=== PATIENT | male | born 1935 | race Caucasian/White ===

== ENCOUNTER 2016-06-23 08:31 | Inpatient (IN) | payer MEDICARE ==
[~2016-06-23] VITALS: Ht 180.3 cm; Wt 91.6 kg
[~2016-06-23 08:31] MED LIST: ARICEPT10 MG PO; ASPIR-LOW81 MG PO; BACTRIM DS 8001 TAB PO; BUPROPION SR150 MG PO; CEFTIN 250250 MG/TAB PO; FLOMAX; KLOR-CON 1010 MEQ PO; LASIX 40MG TABL40 MG PO; LISINOPRIL/HCTZ1 TAB PO; LOPRESSOR 225 MG/TAB PO; NAMENDA XR 7 PO; NORCO 325 MG-51 TAB PO; TOPROL XL50 MG PO; WELLBUTRIN SR150 M1 PO; ZOCOR 80MG80 MG PO; ZOCOR80 MG PO; ZYLOPRIM 100MG100 MG PO
[2016-06-23 09:01] LABS: BASO % 0.4 % (0.0-2.0); EOS % 0.4 % (0-4.0); GRAN % 75.8 % (42.2-75.2); HEMOGLOBIN 13.9 g/dl (13.5-18.0); LYMPH # 1.3 (1.2-3.4); LYMPH % 13.5 % (20.0-51.0); MEAN CELL VOLUME 88 fl (80.0-100.0); MEAN CORPUSCULAR HEMOGLOBIN 29 pg (27.0-31.0); MEAN CORPUSCULAR HGB CONC 33 g/dl (33.0-37.0); MONO # 0.9 (0.1-0.6); MONO % 9.4 % (1.7-9.3); PLATELET COUNT 150 K/mm3 (130-400); RED BLOOD COUNT 4.79 M/mm3 (4.20-5.60); REDCELL DISTRIBUTION WIDTH-CV 14.2 % (11.5-14.5); WHITE BLOOD COUNT 9.2 K/mm3 (4.8-10.8)
[2016-06-23 09:05] LABS: INR 1.1 (0.8-3.0); PROTHROMBIN TIME 12.4 SECONDS (9.7-12.8)
[2016-06-23 09:07] LABS: PARTIAL THROMBOPLASTIN TIME 38.1 SECONDS (26.0-37.0)
[2016-06-23 09:15] LABS: ADJUSTED CALCIUM 8.7 mg/dL (8.4-10.2); BILIRUBIN,TOTAL 1.8 mg/dL (0.0-1.0); CALCIUM 8.7 mg/dL (8.4-10.2); CREATININE, serum 1.95 mg/dL (0.66-1.25); POTASSIUM 3.6 mmol/L (3.4-5.0)
[2016-06-23 09:27] LABS: TROPONIN-I 0.013 ng/mL (0.000-0.034)
[2016-06-23] MEDS ORDERED: ASPIRIN 81M81 MG/TA2 PO (09:57)
[2016-06-23] MEDS ORDERED: PRINZIDE 12.5 M1 TAB PO (09:58)
[2016-06-23] MEDS ORDERED: NAMENDA 10MG TA10 MG PO (09:59)
[2016-06-23] MEDS ORDERED: PLAVIX 75MG TAB75 MG PO (10:48)
[2016-06-23 11:22] LABS: PH 6 (5-8); SQUAMOUS EPITHELIAL 0-2 /hpf; URINE APPEARANCE Clear; URINE BACTERIA None Seen /hpf; URINE BILIRUBIN Negative (NEGATIVE); URINE BLOOD Negative (NEGATIVE); URINE COLOR Yellow; URINE GLUCOSE Negative (NEGATIVE); URINE KETONE Negative (NEGATIVE); URINE RBC 0-2 /hpf; URINE UROBILINOGEN Negative (NEGATIVE); URINE WBC 0-2 /hpf
[2016-06-23 12:48] VITALS: BP 134/62; PULSE 55; TEMP 98
[2016-06-23 12:51] VITALS: BP 134/62; PULSE 55; TEMP 98
[2016-06-23 16:51] VITALS: BP 151/55; PULSE 68; TEMP 98.6
[2016-06-23 19:50] VITALS: BP 134/78; PULSE 69; TEMP 98.5
[2016-06-23 23:46] VITALS: BP 117/59; PULSE 59; TEMP 98.3
[2016-06-24 03:35] VITALS: BP 128/65; PULSE 67; TEMP 98.2
[2016-06-24 07:30] LABS: HEMATOCRIT 37.9 % (42.0-52.0); HEMOGLOBIN 12.6 g/dl (13.5-18.0); MEAN CELL VOLUME 88 fl (80.0-100.0); MEAN CORPUSCULAR HEMOGLOBIN 29 pg (27.0-31.0); MEAN CORPUSCULAR HGB CONC 33 g/dl (33.0-37.0); MEAN PLATELET VOLUME 10.4 fl (7.4-10.4); PLATELET COUNT 120 K/mm3 (130-400); RED BLOOD COUNT 4.32 M/mm3 (4.20-5.60); REDCELL DISTRIBUTION WIDTH-CV 14.3 % (11.5-14.5)
[2016-06-24 07:40] LABS: CALCIUM 8.3 mg/dL (8.4-10.2); CREATININE, serum 1.72 mg/dL (0.66-1.25); POTASSIUM 3.2 mmol/L (3.4-5.0)
[2016-06-24 07:53] VITALS: BP 138/63; PULSE 62; TEMP 97.4
[2016-06-24 07:58] LABS: THYROXINE (T4)-TOTAL 4.4 ug/dL (5.5-11.0)
[2016-06-24 08:21] LABS: ERYTHROCYTE SEDIMENTATION RATE 14 mm/hr (0-30)
[2016-06-24 11:50] VITALS: BP 155/74; PULSE 68; TEMP 98.5
[2016-06-24 16:47] VITALS: BP 141/67; PULSE 74; TEMP 98.5
[2016-06-24 20:29] VITALS: BP 142/65; PULSE 73; TEMP 97.8
[2016-06-24 23:52] VITALS: BP 147/62; PULSE 61; TEMP 97.8
[2016-06-25 02:52] VITALS: BP 171/68; PULSE 60; TEMP 97.3
[2016-06-25 08:12] LABS: BASO % 0.9 % (0.0-2.0); EOS # 0.2 (0.0-0.7); EOS % 4.5 % (0-4.0); GRAN # 2.1 (1.4-6.5); GRAN % 50.5 % (42.2-75.2); HEMATOCRIT 38.2 % (42.0-52.0); HEMOGLOBIN 12.6 g/dl (13.5-18.0); LYMPH # 1.3 (1.2-3.4); MEAN CELL VOLUME 88 fl (80.0-100.0); MEAN CORPUSCULAR HEMOGLOBIN 29 pg (27.0-31.0); MEAN CORPUSCULAR HGB CONC 33 g/dl (33.0-37.0); MEAN PLATELET VOLUME 10.7 fl (7.4-10.4); MONO # 0.6 (0.1-0.6); MONO % 13.9 % (1.7-9.3); PLATELET COUNT 127 K/mm3 (130-400); RED BLOOD COUNT 4.32 M/mm3 (4.20-5.60); REDCELL DISTRIBUTION WIDTH-CV 14.1 % (11.5-14.5); WHITE BLOOD COUNT 4.2 K/mm3 (4.8-10.8)
[2016-06-25 08:17] LABS: C-REACTIVE PROTEIN 1.4 mg/dL (0.0-0.9); CALCIUM 8.3 mg/dL (8.4-10.2); CREATININE, serum 1.56 mg/dL (0.66-1.25); POTASSIUM 3.3 mmol/L (3.4-5.0)
[2016-06-25 09:09] VITALS: BP 122/59; PULSE 71; TEMP 98.1
[2016-06-25] MEDS ORDERED: CLEOCIN HCL300 MG PO (11:28)
[2016-06-25] MEDS ORDERED: SYNTHROID 0.0.025 MG PO (11:28)
[2016-06-25] MEDS ORDERED: ASPIRIN 32325 MG/TAB PO (11:29)
[2016-06-25 12:13] VITALS: BP 153/77; PULSE 60; TEMP 98.1
== END 2016-06-25 14:34 | disposition home or self-care (01) | DRG 603 ==
LOC: COL.ER 08:31 → MEDICAL 11:15
PROVIDERS: Family Medicine; Nurse Practitioner; Psychiatry & Neurology Neurology
DX: L03.211 Cellulitis of face (principal); N17.9 Acute kidney failure, unspecified; R29.810 Facial weakness; I25.10 Atherosclerotic heart disease of native coronary artery without angina pectoris; G30.9 Alzheimer's disease, unspecified; F02.80 Dementia in other diseases classified elsewhere, unspecified severity, without behavioral disturbance, psychotic disturbance, mood disturbance, and anxiety; I12.9 Hypertensive chronic kidney disease with stage 1 through stage 4 chronic kidney disease, or unspecified chronic kidney disease; N18.9 Chronic kidney disease, unspecified; Z95.5 Presence of coronary angioplasty implant and graft
CPT/HCPCS: 99223-AI; 99232-AI; 99239; J1644; J3370; J7030; J7050

== ENCOUNTER → 2018-07-08 | Outpatient (REF) ==
[~2018-07-08] MED LIST changes: +ASPIRIN 32325 MG/TAB PO; +ASPIRIN 81M81 MG/TA2 PO; +CLEOCIN HCL300 MG PO; +NAMENDA 10MG TA10 MG PO; +PLAVIX 75MG TAB75 MG PO; +PRINZIDE 12.5 M1 TAB PO; +SYNTHROID 0.0.025 MG PO
== END ==
LOC: ZLAB.WCH 19:37
DX: Z01.89 Encounter for other specified special examinations (principal)

== ENCOUNTER 2018-08-19 17:33 | Emergency (ER) | payer MEDICARE ==
[~2018-08-19] VITALS: Ht 175.3 cm; Wt 70.5 kg
[2018-08-19 18:00] VITALS: TEMP 98.3
[2018-08-19] MEDS ORDERED: KLONOPIN 0.5MG0.5 MG PO (18:03)
[2018-08-19] MEDS ORDERED: ASPIRIN 81M81 MG/TA2 PO (18:03)
[2018-08-19] MEDS ORDERED: LEVAQUIN 5500 MG/TA1 PO (18:04)
[2018-08-19] MEDS ORDERED: NYSTATIN POWDER15 GM TOP (18:04)
[2018-08-19] MEDS ORDERED: SEROQUEL 1100 MG/TAB PO (18:05)
[2018-08-19] MEDS ORDERED: KLOR-CON SPRINK8 MEQ PO (18:05)
[2018-08-19] MEDS ORDERED: TYLENOL 325MG325 MG PO (18:06)
[2018-08-19] MEDS ORDERED: ULTRAM 50MG TAB50 MG PO (18:06)
[2018-08-19 18:17] LABS: BASO % 0.4 % (0.0-2.0); EOS % 0.1 % (0-4.0); GRAN # 7.1 (1.4-6.5); GRAN % 77.4 % (42.2-75.2); HEMATOCRIT 35.5 % (42.0-52.0); HEMOGLOBIN 11.1 g/dl (13.5-18.0); LYMPH # 1.2 (1.2-3.4); LYMPH % 13.2 % (20.0-51.0); MEAN CELL VOLUME 88 fl (80.0-100.0); MEAN CORPUSCULAR HEMOGLOBIN 28 pg (27.0-31.0); MEAN CORPUSCULAR HGB CONC 31 g/dl (33.0-37.0); MEAN PLATELET VOLUME 9.9 fl (7.4-10.4); MONO # 0.8 (0.1-0.6); MONO % 8.4 % (1.7-9.3); PLATELET COUNT 364 K/mm3 (130-400); RED BLOOD COUNT 4.02 M/mm3 (4.20-5.60); REDCELL DISTRIBUTION WIDTH-CV 13.7 % (11.5-14.5)
[2018-08-19 18:24] LABS: PARTIAL THROMBOPLASTIN TIME 38.9 SECONDS (26.0-37.0)
[2018-08-19 18:27] LABS: INR 1.3 (0.8-3.0); PROTHROMBIN TIME 14.3 SECONDS (9.7-12.8)
[2018-08-19 18:30] LABS: ALANINE AMINOTRANSFERASE 26 U/L (21-72); ALBUMIN 3.1 gm/dL (3.5-5.0); ALKALINE PHOSPHATASE 148 U/L (50-136); ANION GAP 9 mmol/L (7-16); AST,SGOT 54 U/L (15-37); BILIRUBIN,TOTAL 0.8 mg/dL (0.0-1.0); BLOOD UREA NITROGEN 63 mg/dL (9-20); CALCIUM 9.4 mg/dL (8.4-10.2); CARBON DIOXIDE 26 mmol/L (22-30); CHLORIDE 108 mmol/L (98-107); GLUCOSE 121 mg/dL (74-106); MAGNESIUM 2.3 mg/dL (1.6-2.3); PHOSPHOROUS 4.5 mg/dL (2.5-4.5); POTASSIUM 4.7 mmol/L (3.4-5.0); SODIUM 143 mmol/L (137-145); TOTAL PROTEIN 6.4 gm/dL (6.4-8.2)
[2018-08-19 18:39] LABS: TROPONIN-I < 0.012 ng/mL (0.000-0.035)
[2018-08-19 18:42] LABS: C-REACTIVE PROTEIN 13.8 mg/dL (0.0-0.9)
[2018-08-19 19:10] LABS: COLLECTION METHOD CLEAN CATCH
[2018-08-19 19:15] LABS: MUCOUS Present /lpf; PH 5 (5-8); SQUAMOUS EPITHELIAL None Seen /hpf; URINE APPEARANCE Hazy; URINE BACTERIA None Seen /hpf; URINE BILIRUBIN Negative (NEGATIVE); URINE BLOOD Negative (NEGATIVE); URINE COLOR Yellow; URINE GLUCOSE Negative (NEGATIVE); URINE KETONE Negative (NEGATIVE); URINE LEUKOCYTE ESTERASE Negative (NEGATIVE); URINE NITRATE Negative (NEGATIVE); URINE PROTEIN(semi-quant) Negative (NEGATIVE); URINE RBC 0-2 /hpf; URINE UROBILINOGEN Negative (NEGATIVE)
[2018-08-19 22:54] VITALS: BP 126/94
[2018-08-19 23:20] VITALS: PULSE 100
== END 2018-08-19 23:50 | disposition short-term general hospital (02) ==
LOC: COL.ER 17:33
PROVIDERS: Emergency Medicine
DX: I62.00 Nontraumatic subdural hemorrhage, unspecified (principal); N17.9 Acute kidney failure, unspecified; I25.10 Atherosclerotic heart disease of native coronary artery without angina pectoris; I10 Essential (primary) hypertension; F03.90 Unspecified dementia, unspecified severity, without behavioral disturbance, psychotic disturbance, mood disturbance, and anxiety; F32.9 Major depressive disorder, single episode, unspecified; Z79.82 Long term (current) use of aspirin; Z95.5 Presence of coronary angioplasty implant and graft; Z90.49 Acquired absence of other specified parts of digestive tract
CPT/HCPCS: J7030